=== PATIENT | male | born 1975 | race Caucasian/White ===

== ENCOUNTER 2018-02-10 10:08 | Emergency (ER) | payer OTHER ==
[2018-02-10 10:24] VITALS: BP 145/99
--- NOTE | 2018-02-10 10:30 | UC ---
Lower Extremity/Ankle HPI - HPI Summary HPI Summary: 42 yo male presents with right calf and knee pain for the last week. He tells me that for the past week he has been having cramping and aches in his right calf with swelling at bedtime. Denies injury. He also feels pain behind his right knee. 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 He does not smoke. Denies fever, chills, SOB, chest pain, recent illness, recent travel, or cancer hx. - History of Current Complaint Chief Complaint: UCLowerExtremity Stated Complaint: RIGHT KNEE COMPLAINT Time Seen by Provider: 02/10/18 10:28 Hx Obtained From: Patient Onset/Duration: Gradual Onset Severity Currently: None Pain Intensity: 0 Able to Bear Weight: Yes - Allergies/Home Medications Allergies/Adverse Reactions: Allergies Allergy/AdvReac Type Severity Reaction Status Date / Time erythromycin base Allergy Unknown Unknown Verified 02/10/18 10:25 Reaction Details Penicillins Allergy Unknown Unknown Verified 02/10/18 10:25 Reaction Details Home Medications: Home Medications NK [No Home Medications Reported] 02/10/18 [History Confirmed 02/10/18] PMH/Surg Hx/FS Hx/Imm Hx Cardiovascular History: Hypertension - Surgical History Surgical History: Yes Surgery Procedure, Year, and Place: Vasectomy - Family History Known Family History: Positive: Unknown - Social History Occupation: Employed Full-time Lives: With Family Alcohol Use: Weekly Substance Use Type: None Smoking Status (MU): Former Smoker Type: Cigarettes Length of Time of Smoking/Using Tobacco: 6 YEARS Have You Smoked in the Last Year: No When Did the Patient Quit Smoking/Using Tobacco: 10 YEARS Review of Systems Constitutional: Negative Skin: Negative Respiratory: Negative Cardiovascular: Negative Gastrointestinal: Negative Neurovascular: Negative Musculoskeletal: Other: - Right calf pain Neurological: Negative Psychological: Negative All Other Systems Reviewed And Are Negative: Yes Physical Exam - Summary Physical Exam Summary: GENERAL: NAD. WDWN. No pain distress. SKIN: No rashes, sores, lesions, or open wounds. NECK: Supple. Nontender. No lymphadenopathy. CHEST: No accessory muscle use. Breathing comfortably and in no distress. CV: RRR. Without m/r/g. Pulses intact popliteal, PT, and DP. Brisk cap refill. MSK: Right leg: calf with mild edema. Negative Ace's sign. Right knee: + patella apprehension and patella crepitus. Strength 5/5. No edema or obvious bony deformities. Negative Jodi, A/P drawer, Keyur, and varus/valgus stress. NEURO: Alert. Sensations intact and symmetric B/L LEs PSYCH: Age appropriate behavior. Triage Information Reviewed: Yes Vital Signs: Initial Vital Signs Temp 99.1 F 02/10/18 10:19 Pulse 94 02/10/18 10:19 Resp 18 02/10/18 10:19 BP 145/99 02/10/18 10:19 Pulse Ox 98 02/10/18 10:19 Lower Extremity Course/Dx - Course Course Of Treatment: US: IMPRESSION: Normal examination. No evidence of deep venous thrombosis. Will start him with PT and refer to sport medicine for further eval and treatment of his knee and calf pain. - Differential Dx/Diagnosis Provider Diagnoses: Right knee pain. Right calf pain Discharge - Sign-Out/Discharge Documenting (check all that apply): Discharge/Admit/Transfer - Discharge Plan Condition: Stable Disposition: HOME Patient Education Materials: Knee Pain (ED) Referrals: Pam Barfield NP [Primary Care Provider] - [facility] [Provider Group] - As Soon As Possible Additional Instructions: If you develop a fever, shortness of breath, chest pain, new or worsening symptoms - please call your PCP or go to the ED. Your blood pressure was high at todays visit. Please see your primary provider within 4 weeks for recheck and re-evaluation. 1) Please follow up with Physical therapy and Sport Medicine for further treatment of your knee and leg pain - Billing Disposition and Condition Condition: STABLE Disposition: Home
--- NOTE | 2018-02-10 11:56 | RAD ---
INDICATION: Pain and swelling. COMPARISON: None TECHNIQUE: Duplex interrogation of the right lowerextremity was performed. FINDINGS: Deep veins: The common femoral, great saphenous, profunda femoris, proximal, mid, and distal deep femoral, popliteal, posterior tibial, and peroneal veins are patent. There is normal compressibility, augmentation, and phasic flow. Superficial veins: There are no findings of superficial thrombophlebitis. Popliteal fossa:There is no evidence of a popliteal cyst. Soft tissues:There are no soft tissue abnormalities. IMPRESSION: Normal examination. No evidence of deep venous thrombosis
== END 2018-02-10 12:05 | disposition home or self-care (01) ==
LOC: UCCORT 10:08
DX: M25.561 Pain in right knee (principal); M79.661 Pain in right lower leg; Z88.1 Allergy status to other antibiotic agents; Z88.0 Allergy status to penicillin; I10 Essential (primary) hypertension; Z87.891 Personal history of nicotine dependence
CPT/HCPCS: 99211; G0463